=== PATIENT | female | born 1975 | race Two or more races ===

== ENCOUNTER → 2020-08-20 | Outpatient (CLI) | payer BC ==
[~2020-08-20] MED LIST: ASCO100018 PO
== END | disposition home or self-care (01) ==
LOC: STAR 11:36
PROVIDERS: ATTEND Specialist
DX: Z01.812 Encounter for preprocedural laboratory examination (principal); N92.0 Excessive and frequent menstruation with regular cycle; D25.0 Submucous leiomyoma of uterus; Z20.828 Contact with and (suspected) exposure to other viral communicable diseases
CPT/HCPCS: 36415; 87635

== ENCOUNTER 2020-08-24 08:03 | Day surgery (SDC) | payer BC ==
[~2020-08-24] VITALS: Ht 165.1 cm; Wt 60.8 kg
[~2020-08-24 08:03] MED LIST changes: +BUPIVACAINE/PF 0.25% ONE; +CEFOTETAN PMX 2GM/50ML 50 ML IVPB ONE
[2020-08-24] MEDS ORDERED: MIDAZOLAM 1 MG/ML, 2ML ONE (08:05)
[2020-08-24] MEDS ORDERED: KETOROLAC 30 MG/1 ML ONE (08:05)
[2020-08-24] MEDS ORDERED: FENTANYL PF 250 MCG/5ML ONE (08:05)
[2020-08-24] MEDS ORDERED: CEFAZOLIN 1,000 MG ONE (08:06)
[2020-08-24] MEDS ORDERED: NEOSTIGMINE 1 MG/ML, 10ML ONE (08:06)
[2020-08-24] MEDS ORDERED: PROPOFOL 10 MG/ML, 20ML ONE (08:06)
[2020-08-24] MEDS ORDERED: GLYCOPYRROLATE 0.2MG/1ML, 5ML ONE (08:06)
[2020-08-24] MEDS ORDERED: ROCURONIUM 10MG/ML,5ML ONE (08:06)
[2020-08-24] MEDS ORDERED: ONDANSETRON 2MG/ML, 2ML ONE (08:06)
[2020-08-24] MEDS ORDERED: DEXAMETHASONE 4 MG/ML, 1ML ONE (08:06)
[2020-08-24 08:33] VITALS: BP 103/71
[2020-08-24] MEDS ORDERED: LACTATED RINGERS 1,000 ML IV SCH (09:00)
[2020-08-24] MEDS ORDERED: LIDOCAINE-MPF 1%, 2ML INFIL ONE (09:00)
[2020-08-24] MEDS ORDERED: CHLORHEXIDINE 15 ML UDC MM ONE (09:00)
[2020-08-24] MEDS ORDERED: FENTANYL PF 100 MCG/2ML IV PRN (10:30)
[2020-08-24] MEDS ORDERED: PROMETHAZINE 25 MG/ML, 1ML IVPush PRN (10:30)
[2020-08-24] MEDS ORDERED: morphine SULFATE 10 MG/ML, 1ML IVPush PRN (10:30)
[2020-08-24] MEDS ORDERED: hydrALAzine 20 MG/ML, 1ML IV PRN (10:30)
[2020-08-24] MEDS ORDERED: HYDROmorphone 1 MG/ML, 1ML INJ IVPush PRN (10:30)
[2020-08-24] MEDS ORDERED: ACETAMINOPHEN 325 MG TABLET PO PRN (10:30)
[2020-08-24] MEDS ORDERED: MEPERIDINE/PF 25MG/0.5ML IVPush PRN (10:30)
[2020-08-24] MEDS ORDERED: OXYcodone 5 MG/5 ML ORAL.SOL UDC PO PRN (10:30)
[2020-08-24] MEDS ORDERED: LABETALOL 5MG/ML, 20ML IV PRN (10:30)
[2020-08-24] MEDS ORDERED: HALOPERIDOL 5 MG/ML IV PRN (10:30)
[2020-08-24] MEDS ORDERED: FENTANYL PF 100 MCG/2ML ONE ×2 (11:21→11:48)
[2020-08-24] MEDS ORDERED: INDIGO CARMINE 0.8%, 5ML ONE (12:31)
== END 2020-08-24 15:05 | disposition home or self-care (01) ==
LOC: OUT 08:03
PROVIDERS: ATTEND Specialist
DX: D25.0 Submucous leiomyoma of uterus (principal); D25.1 Intramural leiomyoma of uterus; N92.0 Excessive and frequent menstruation with regular cycle; Z79.899 Other long term (current) drug therapy; Z88.5 Allergy status to narcotic agent
CPT/HCPCS: 58571; 81025; 88307; J0690; J1100; J1885; J2250; J2405; J2704; J2710; J3010; J7120; S2900